=== PATIENT | female | born 1995 | race Caucasian/White ===

== ENCOUNTER 2023-08-31 16:53 | Observation (INO) | payer BC, SELFPAY ==
[2023-08-31 17:25] LABS: Appearance Urine Cloudy (Clear); Bacteria Urine None Seen /hpf; Bilirubin Urine Negative (Negative); Blood Urine Negative (Negative); Color Urine Yellow (Yellow); Glucose Urine UA Negative (Negative); Ketones Urine Negative (Negative); Leukocyte Esterase Ur Trace LEU/UL (Negative); Nitrate Urine Negative (Negative); Non Pathogenic Casts 0-2; Protein Urine Negative (Negative); RBC Urine 0-2 /hpf (0-2); Specific Grav Ur 1.006 (1.001-1.035); Squamous Epithelial Cell Urine Occasional /hpf (Few); Urobilinogen Urine 0.2 mg/dL (<2.0); WBC Urine 0-5 /hpf; pH Urine 6.5 (5.0-9.0)
[2023-08-31 17:29] VITALS: BP 122/88; PULSE 98
[2023-08-31 17:30] VITALS: BP 119/76; PULSE 88
--- NOTE | 2023-08-31 17:31 | PC.NURSE ---
1700: RN phoned Dr. Sharon Young for orders and explained patient has been feeling pressure in her hips, vagina, and rectum since 2 am today. Orders to send a UA and perform a SVE on patient and ensure patient is not olivia. OB stated if UA comes back WNL, patient is not olivia, FHTs are category 1, and patient's cervix is closed that patient may be discharged home with instructions on when to return to the hospital. 1724: RN performed SVE. Patient's cervix was closed, thick, and high.
[2023-08-31 17:33] LABS: Add Urine Microscopic? YES
--- NOTE | 2023-08-31 17:36 | OBADM ---
This patient, Micaela Olmos, admitted to the OB room OB Post 116 for observation. Patient/family oriented to hospital policies and general routines including ID bracelet, bed and alarms, visiting hours, pain management, procedures, bathroom and other care routines, personal items, smoking policy, room service/diet, and visiting hours. Patient/Family are encouraged to report perceived risks to care and to ask questions if they do not understand what they are told or what they should do.
[2023-08-31 17:45] VITALS: BP 121/80; PULSE 93
[2023-08-31 17:56] VITALS: BP 122/88; PULSE 101
--- NOTE | 2023-09-02 07:08 | P.PNOB_ITS ---
OB - Triage/Final Diagnosis Visit Information Date of evaluation: 08/31/23 Reason for evaluation: threatened labor Comments/Additional reasons for admission: I have assessed the risk for this patient, Micaela Olmos, and determined that she would benefit from observation care. Evaluation Laboratory results: Laboratory Tests 08/31/23 17:11 Urine Color Yellow Urine Appearance Cloudy H Urine pH 6.5 Ur Specific [place] 1.006 Urine Protein Negative Urine Glucose (UA) Negative Urine Ketones Negative Ur Blood (Man) Negative Urine Nitrate Negative Urine Bilirubin Negative Urine Urobilinogen 0.2 Leukocyte Esterase Rfl Trace H Urine RBC 0-2 Urine WBC 0-5 Ur Squamous Epith Cells Occasional Urine Bacteria None seen Urine Casts 0-2
== END 2023-08-31 18:02 | disposition home or self-care (01) ==
PROVIDERS: Admitting Provider Obstetrics & Gynecology; Visit Provider Obstetrics & Gynecology
DX: O47.02 False labor before 37 completed weeks of gestation, second trimester (principal); Z3A.25 25 weeks gestation of pregnancy
CPT/HCPCS: 59025; 81001; G0378; G0379

== ENCOUNTER 2023-09-14 06:06 | Observation (INO) | payer BC, SELFPAY ==
--- NOTE | ~2023-09-14 | US_ITS ---
EXAMINATION: US OB limited w BPP DATE: 09/14/2023 09:19 INDICATION: Vaginal bleeding during early third trimester TECHNIQUE: Real-time pelvic ultrasound was performed. The interpreting radiologist was not present fo r the study. COMPARISON: None. FINDINGS: There is a single living fetus in vertex presentation. The placenta is anterior. heart rate is 138 beats per minute (bpm). Normal amniotic fluid index of 12.6 cm (5th%-95%: 9.5-24.5 cm at 27 week s estimated gestational age). Normal cervical length of approximately 3.5-4 cm. Biophysical profile performed by the technologist: breathing (30 sec sustained breathing in 30 minutes): 2 out of 2 movement (3 gross body movements in 30 minutes): 2 out of 2 tone (one episode of xumkmov-shvmbgjey-tyfgwly limb movement): 2 out of 2 Amniotic fluid pocket (2 cm): 2 out of 2 Total score: 8 out of 8 IMPRESSION: 1. Single living fetus in vertex presentation with heart rate of 138 bpm. 2. Biophysical profile 8 out of 8. 3. Normal amniotic fluid index of 12.6 cm. Reviewed, dictated and finalized at location A. ARCH ASSISTANT PROFESSOR
[2023-09-14 06:33] VITALS: BP 120/85; PULSE 89
[2023-09-14 06:47] VITALS: BMI 38.7
[2023-09-14 07:00] VITALS: BP 112/72; PULSE 86
[2023-09-14 07:19] LABS: Add Urine Microscopic? YES; Appearance Urine Clear (Clear); Bacteria Urine Rare /hpf; Bilirubin Urine Negative (Negative); Blood Urine 1+ (Negative); Color Urine Yellow (Yellow); Glucose Urine UA Negative (Negative); Ketones Urine Negative (Negative); Leukocyte Esterase Ur 2+ LEU/UL (Negative); Need Manual Microscopic Reviewed; Nitrate Urine Negative (Negative); Non Pathogenic Casts 0-2; Protein Urine Negative (Negative); RBC Urine 0-2 /hpf (0-2); Specific Grav Ur 1.018 (1.001-1.035); Squamous Epithelial Cell Urine Few /hpf (Few); WBC Urine 0-5 /hpf
[2023-09-14 08:00] VITALS: BP 112/72; PULSE 79
--- NOTE | 2023-09-14 08:19 | P.PNOB_ITS ---
OB - Triage/Final Diagnosis Visit Information Date of evaluation: 09/14/23 Reason for evaluation: threatened labor Comments/Additional reasons for admission: I have assessed the risk for this patient, Micaela Olmos, and determined that she would benefit from observation care. Evaluation Laboratory results: Laboratory Tests 09/14/23 06:43 Urine Color Yellow Urine Appearance Clear Urine pH 7.0 Ur Specific [place] 1.018 Urine Protein Negative Urine Glucose (UA) Negative Urine Ketones Negative Ur Blood (Man) 1+ H Urine Nitrate Negative Urine Bilirubin Negative Urine Urobilinogen 1.0 Add Ur Microanalysis Reviewed Leukocyte Esterase Rfl 2+ H Urine RBC 0-2 Urine WBC 0-5 Ur Squamous Epith Cells Few Urine Bacteria Rare Urine Casts 0-2 Vital signs: Vital Signs - 24 hr 09/14/23 06:33 09/14/23 07:00 09/14/23 08:00 Pulse Rate 89 86 79 Blood Pressure 120/85 112/72 112/72
--- NOTE | 2023-09-14 09:52 | PC.NURSE ---
Discussed ultrasound report with pt. Pt has an appt with Dr. Hernadez on Saturday. May return to work tomorrow if there is no more bleeding. Pt stated she had just a scant amt of pink discharge when she used the bathroom recently.
== END 2023-09-14 09:55 | disposition home or self-care (01) ==
PROVIDERS: Admitting Provider Obstetrics & Gynecology; Visit Provider Obstetrics & Gynecology
DX: O47.02 False labor before 37 completed weeks of gestation, second trimester (principal); Z3A.27 27 weeks gestation of pregnancy
CPT/HCPCS: 76815; 76819; 81001; G0378; G0379

== ENCOUNTER 2023-10-02 13:03 | Outpatient (RCR) | payer BC, SELFPAY ==
[2023-10-02 14:09] VITALS: BP 118/86; PULSE 96
== END 2023-12-31 23:59 | disposition home or self-care (01) ==
LOC: ANHOBOP 13:03
PROVIDERS: Visit Provider Obstetrics & Gynecology
DX: O36.8130 Decreased fetal movements, third trimester, not applicable or unspecified (principal); Z3A.29 29 weeks gestation of pregnancy
CPT/HCPCS: 59025

== ENCOUNTER 2023-10-26 20:36 | Observation (INO) | payer BC, SELFPAY ==
--- NOTE | ~2023-10-26 | US_ITS ---
EXAMINATION: US OB limited w BPP DATE: 10/26/2023 22:23 INDICATION: Placental assessment and cervical length check during third trimester TECHNIQUE: Real-time pelvic ultrasound was performed. The interpreting radiologist was not present fo r the study. COMPARISON: 09/14/2023 FINDINGS: There is a single living fetus in vertex presentation. The placenta is anterior. The measured cervica l length is 5.9 cm. heart rate is 148 beats per minute (bpm). The amniotic fluid index is 14.7 cm which is normal (normal range: 8.3 cm to 24.5 cm). Biophysical profile performed by the technologist: breathing (30 sec sustained breathing in 30 minutes): 2 out of 2 movement (3 gross body movements in 30 minutes): 2 out of 2 tone (one episode of knesveg-inzdfuhlx-pdwmbvk limb movement): 2 out of 2 Amniotic fluid pocket (2 cm): 2 out of 2 Total score: 8 out of 8 IMPRESSION: 1. Single living fetus in vertex presentation. 2. Biophysical profile 8 out of 8. 3. Normal amniotic fluid index. Reviewed, dictated and finalized at location F. NIGHT CAREGIVER
--- NOTE | 2023-10-26 20:41 | PC.NURSE ---
Notified Dr. Hernadez of patient arrival to OB unit with complaint of vaginal bleeding/spotting and abdominal pain. Patient states that she had light pink vaginal bleeding following a BM today. 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 Patient states that she did not have any more spotting after her BM this evening. Patient abdomen palpates soft.
--- NOTE | 2023-10-26 20:53 | PC.NURSE ---
Radiology notified of STAT ultrasound order for vaginal bleeding during . appliance repair technician will be called in.
[2023-10-26 20:57] VITALS: RESP 16; TEMP 36.8
[2023-10-26 21:42] LABS: Appearance Urine Clear (Clear); Bacteria Urine None Seen /hpf; Bilirubin Urine Negative (Negative); Blood Urine Negative (Negative); Calcium Oxalate Crystals Urine Present /hpf; Color Urine Yellow (Yellow); Glucose Urine UA Negative (Negative); Ketones Urine Trace mg/dL (Negative); Leukocyte Esterase Ur 1+ LEU/UL (Negative); Need Manual Microscopic Reviewed; Nitrate Urine Negative (Negative); Non Pathogenic Casts 0-2; Protein Urine Negative (Negative); RBC Urine 0-2 /hpf (0-2); Specific Grav Ur 1.023 (1.001-1.035); Squamous Epithelial Cell Urine Occasional /hpf (Few); Urobilinogen Urine 0.2 mg/dL (<2.0); WBC Urine 0-5 /hpf
--- NOTE | 2023-10-26 21:42 | PM.OBTRLD ---
OB - Triage/Final Diagnosis Visit Information Date of evaluation: 10/26/23 Reason for evaluation: other (spotting) Comments/Additional reasons for admission: I have assessed the risk for this patient, Micaelawaylon Olmos, and determined that she would benefit from observation care.
[2023-10-26 21:43] LABS: Add Urine Microscopic? YES
[2023-10-26 21:51] VITALS: BP 124/76; PULSE 94
--- NOTE | 2023-10-26 21:59 | PC.NURSE ---
Patient taken to ultrasound via wheelchair
--- NOTE | 2023-10-26 21:59 | PC.NURSE ---
Dr. Hernadez in unit and reviewed lab results.
--- NOTE | 2023-10-26 22:23 | PC.NURSE ---
Patient returned from ultrasound via wheelchair.
--- NOTE | 2023-10-26 22:44 | PC.NURSE ---
Notified Dr. Hernaedz of ultrasound report from home appliance technician, radiologist report is still pending. Order to discharge patient to home, patient to follow-up in the office on Saturday.
--- NOTE | 2023-10-26 22:55 | PC.NURSE ---
Discharge instructions reviewed with patient. Patient instructed to maintain pelvic rest until follow-up on Saturday10/29/2023 and instructed not to work until follow-up 10/29/2023. labor precautions and kick counts reviewed with patient and patient provided an educational handout. Patient states understanding of all discharge education and instructions.
== END 2023-10-26 22:55 | disposition home or self-care (01) ==
PROVIDERS: Admitting Provider Obstetrics & Gynecology; Visit Provider Obstetrics & Gynecology
DX: O26.853 Spotting complicating pregnancy, third trimester (principal); O26.893 Other specified pregnancy related conditions, third trimester; R10.9 Unspecified abdominal pain; Z3A.33 33 weeks gestation of pregnancy
CPT/HCPCS: 59025; 76815; 76819; 81001; G0378; G0379

== ENCOUNTER 2023-11-10 02:42 | Observation (INO) | payer BC, SELFPAY ==
[2023-11-10] VITALS (7 sets, daily range): BP systolic 106–130; BP diastolic 68–85; PULSE 87–110; BMI 38.7
[2023-11-10 03:27] LABS: Appearance Urine Clear (Clear); Bacteria Urine None Seen /hpf; Bilirubin Urine Negative (Negative); Blood Urine 1+ (Negative); Color Urine Yellow (Yellow); Glucose Urine UA Trace mg/dL (Negative); Ketones Urine Negative (Negative); Leukocyte Esterase Ur 2+ LEU/UL (Negative); Nitrate Urine Negative (Negative); Non Pathogenic Casts 0-2; Protein Urine Negative (Negative); RBC Urine 0-2 /hpf (0-2); Specific Grav Ur 1.009 (1.001-1.035); Squamous Epithelial Cell Urine Occasional /hpf (Few)
[2023-11-10 03:39] LABS: Add Urine Microscopic? YES
--- NOTE | 2023-11-10 04:15 | OBADM ---
This patient, Micaela Olmos, admitted to the OB room OB Post 117 for observation. Patient/family oriented to hospital policies and general routines including ID bracelet, bed and alarms, visiting hours, pain management, procedures, bathroom and other care routines, personal items, smoking policy, room service/diet, and visiting hours. Patient/Family are encouraged to report perceived risks to care and to ask questions if they do not understand what they are told or what they should do.
--- NOTE | 2023-11-15 05:38 | P.PNOB_ITS ---
OB - Triage/Final Diagnosis Visit Information Comments/Additional reasons for admission: I have assessed the risk for this patient, Micaela Olmos, and determined that she would benefit from observation care. Evaluation Laboratory results: Laboratory Tests 11/10/23 03:09 Urine Color Yellow Urine Appearance Clear Urine pH 7.0 Ur Specific [place] 1.009 Urine Protein Negative Urine Glucose (UA) Trace H Urine Ketones Negative Ur Blood (Man) 1+ H Urine Nitrate Negative Urine Bilirubin Negative Urine Urobilinogen 1.0 Leukocyte Esterase Rfl 2+ H Urine RBC 0-2 Urine WBC 11-20 H Ur Squamous Epith Cells Occasional Urine Bacteria None seen Urine Casts 0-2 Final Diagnosis (1) Vaginal spotting: Code(s): N93.9 - Abnormal uterine and vaginal bleeding, unspecified Status: Acute
== END 2023-11-10 04:35 | disposition home or self-care (01) ==
PROVIDERS: Admitting Provider Obstetrics & Gynecology; Visit Provider Obstetrics & Gynecology
DX: O46.93 Antepartum hemorrhage, unspecified, third trimester (principal); Z3A.35 35 weeks gestation of pregnancy
CPT/HCPCS: 81001; 87086; G0378; G0379

== ENCOUNTER 2023-11-21 02:03 | Observation (INO) | payer BC, SELFPAY ==
[2023-11-21 02:38] VITALS: BMI 25.7
--- NOTE | 2023-11-21 03:01 | OBADM ---
This patient, Micaela Bryant, admitted to the OB room Labor/Delivery/Recovery 105 for observation. Patient/family oriented to hospital policies and general routines including ID bracelet, bed and alarms, visiting hours, pain management, procedures, bathroom and other care routines, personal items, smoking policy, room service/diet, and visiting hours. Patient/Family are encouraged to report perceived risks to care and to ask questions if they do not understand what they are told or what they should do.
[2023-11-21 03:32] LABS: Appearance Urine Clear (Clear); Bacteria Urine None Seen /hpf; Bilirubin Urine Negative (Negative); Blood Urine Negative (Negative); Color Urine Yellow (Yellow); Glucose Urine UA Negative (Negative); Ketones Urine Negative (Negative); Leukocyte Esterase Ur 1+ LEU/UL (Negative); Need Manual Microscopic Reviewed; Nitrate Urine Negative (Negative); Non Pathogenic Casts 0-2; Protein Urine Negative (Negative); RBC Urine 0-2 /hpf (0-2); Specific Grav Ur 1.009 (1.001-1.035); Squamous Epithelial Cell Urine None seen /hpf (Few); Urobilinogen Urine 0.2 mg/dL (<2.0); WBC Urine 0-5 /hpf; pH Urine 7.5 (5.0-9.0)
[2023-11-21 03:33] LABS: Add Urine Microscopic? YES
--- NOTE | 2023-12-04 13:47 | PM.OBTRLD ---
OB - Triage/Final Diagnosis Visit Information Comments/Additional reasons for admission: I have assessed the risk for this patient, Micaela Bryant, and determined that she would benefit from observation care. Evaluation Laboratory results: Laboratory Tests 11/21/23 02:56 Urine Color Yellow Urine Appearance Clear Urine pH 7.5 Ur Specific [place] 1.009 Urine Protein Negative Urine Glucose (UA) Negative Urine Ketones Negative Ur Blood (Man) Negative Urine Nitrate Negative Urine Bilirubin Negative Urine Urobilinogen 0.2 Add Ur Microanalysis Reviewed Leukocyte Esterase Rfl 1+ H Urine RBC 0-2 Urine WBC 0-5 Ur Squamous Epith Cells None seen Urine Bacteria None seen Urine Casts 0-2 Final Diagnosis (1) False labor: Code(s): O47.9 - False labor, unspecified Status: Acute
== END 2023-11-21 03:49 | disposition home or self-care (01) ==
PROVIDERS: Admitting Provider Obstetrics & Gynecology; Visit Provider Obstetrics & Gynecology
DX: O47.03 False labor before 37 completed weeks of gestation, third trimester (principal); Z3A.36 36 weeks gestation of pregnancy
CPT/HCPCS: 81001; G0378; G0379

== ENCOUNTER 2023-12-10 06:05 | Inpatient (IN) | payer BC, SELFPAY ==
[2023-12-10] VITALS (142 sets, daily range): BP systolic 99–189; BP diastolic 60–111; PULSE 72–300; RESP 16; TEMP 36.1–36.6; O2SAT 88–100
--- NOTE | 2023-12-10 05:52 | P.HP_ITS ---
H&P: HPI History of Present Illness Date/Time: 12/10/23 05:52 Chief Complaint: elevated blood pressure internal Narrative: 28-year-old 4 para 0 whose last menstrual period was 03/07/2023, EDC is 12/13/2023, confirmed by 9 week ultrasound, presents at 39 weeks gestation for induction of labor secondary to elevated blood pressures. had been previously uncomplicated short of being gestational diabetic. She has been on glyburide 2.5mg with excellent control for sugars. She is negative for group B strep PMFSH Family History Family History Mother Hypertension Sibling Hypertension Acute depression Placental abruption Grandparent Hypertension Grandparent Hypertension Father Hypotension Sibling Hodgkin lymphoma during Grandparent Diabetes mellitus Grandparent Diabetes mellitus Social History Social History Substance use: never Spiritual care concerns: No Meds Home Medications and Allergies Home Medications Medication Instructions Recorded Confirmed Type glyburide 2.5 mg tablet 2.5 mg PO DAILY 10/02/23 11/19/23 History vits no.126-ferrous fum 1 tablet PO DAILY 11/19/23 11/19/23 History 28 mg iron-folic acid 800 mcg tablet (Classic ) Allergies Allergy/AdvReac Type Severity Reaction Status Date / Time No Known Allergies Allergy Verified 11/19/23 14:37 Exam Const: General: cooperative, healthy appearing and comfortable Nutritional Appearance: average body habitus Orientation/consciousness: oriented to person, oriented to place and oriented to time HENMT: Head: normal to inspection Resp: Effort & Inspection: normal respiratory effort Cardio: Rate: regular rate Rhythm: regular rhythm Heart sounds: S1 normal heart sound present and S2 normal heart sound present GI: Inspection: normal to inspection ( gravid soft uterus) : External Female Exam: normal external appearance Speculum Exam - Vagi na: normal appearance of the vagina Speculum Exam - Cervix: normal appearance of the cervix ( cervix 2/ 75/-2) Assessment and Plan Assessment and plan (1) Term : Code(s): Z34.90 - Encounter for supervision of normal , unspecified, unspecified trimester Status: Acute (2) Gestational hypertension: Code(s): O13.9 - Gestational [-induced] hypertension without significant proteinuria, unspecified trimester Status: Acute Plan medical induction of labor. Spontaneous vaginal inspected the a stat nature of
--- NOTE | 2023-12-10 06:44 | LDADM ---
This patient, Micaela Bryant, was admitted to Labor/Delivery/Recovery 106 on 12/10/23 at 06:05. Plans for labor, pain management and were discussed with patient. Patient/family oriented to hospital policies and general routines including ID bracelet, bed and alarms, visiting hours, pain management, procedures, bathroom and other care routines, personal items, smoking policy, room service/diet and guest tray routines, infant security routines, and visiting hours. Patient/Family are encouraged to report perceived risks to care and to ask questions if they do not understand what they are told or what they should do. See OBIX for further documentation.
[2023-12-10] MEDS: LACTATED RINGERS 1,000 ML 125 ML IV CONT ×3 (07:01→16:12)
[2023-12-10] MEDS: OXYTOCIN 30 UNITS/NS 500 ML 30 UNITS/500 ML BAG 6 UNITS IV CONT (07:03)
[2023-12-10 07:16] LABS: Basophils Percent Auto 0.2 % (0.2-1.2); Eosinophils Absolute Auto 0.3 K/mm3 (0-0.3); Eosinophils Percent Auto 2.4 % (0-4.4); Hematocrit 32.6 % (37.0-47.0); Hemoglobin 10.1 g/dL (12.0-15.0); Immature Granulocyte Absolute 0.03 K/mm3 (0.00-0.031); Immature Granulocyte Percent A 0.3 % (0-0.5); Lymphocytes Absolute Auto 2.86 K/mm3 (0.9-3.2); Lymphocytes Percent Auto 25.6 % (18.3-44.2); Mean Platelet Volume 12.4 fl (7.4-10.4); Monocytes Absolute Auto 0.9 K/mm3 (0.1-0.6); Neutrophils Absolute Auto 7.1 K/mm3 (1.3-6.7); Neutrophils Percent Auto 63.5 % (45.5-73.1); Platelet Count Result 217 k/mm3 (150-375); Red Blood Count 3.88 M/mm3 (4.2-5.4); Red Cell Distribution Width 14.8 % (11.5-14.5); White Blood Count 11.2 K/mm3 (4.5-10.0)
[2023-12-10 07:25] LABS: Alanine Aminotransferase 12 U/L (6-35); Albumin Level 3.3 g/dL (3.5-5.1); Alkaline Phosphatase 162 U/L (38-126); Anion Gap 7 mmol/L (8-16); Aspartate Amino Transferase 18 U/L (14-36); Bilirubin,Total 0.3 mg/dL (0.2-1.3); Blood Urea Nitrogen 12 mg/dL (7-17); Calcium 9.2 mg/dL (8.4-10.2); Carbon Dioxide 21 mmol/L (22-30); Chloride 108 mmol/L (98-107); Estimated Glomerular Filt Rate > 60; Glucose 86 mg/dL (65-110); Potassium 3.6 mmol/L (3.4-5.0); Sodium 136 mmol/L (137-145)
[2023-12-10 10:13] LABS: Glucose Point of Care 69 mg/dl (65-105)
--- NOTE | 2023-12-10 11:21 | WPDANESEPP ---
Anes - Eval Pre Procedure Procedure: Labor Epidural Date/Time: 12/10/23 11:21 Surgeon: Maricarmen Preop Diagnosis: Labor Pain Pre Op Diagnosis: iol Patient Data Age: 28 Gender: F Height: Weight: Last Vital Signs Temp 36.2 C L 12/10/23 07:00 Pulse 97 12/10/23 11:19 BP 137/80 12/10/23 11:19 Pulse Ox 97 12/10/23 11:19 O2 Del Method Room Air 12/10/23 06:40 Allergies Allergy/AdvReac Type Severity Reaction Status Date / Time No Known Allergies Allergy Verified 11/19/23 14:37 Home Medications Medication Instructions Recorded Confirmed Type glyburide 2.5 mg tablet 2.5 mg PO DAILY 10/02/23 11/19/23 History vits no.126-ferrous fum 1 tablet PO DAILY 11/19/23 11/19/23 History 28 mg iron-folic acid 800 mcg tablet (Classic ) Laboratory Tests 12/10/23 12/10/23 06:13 10:08 WBC 11.2 H K/mm3 (4.5-10.0) RBC 3.88 L M/mm3 (4.2-5.4) Hgb 10.1 L g/dL (12.0-15.0) Hct 32.6 L % (37.0-47.0) MCV 84.0 fl (80-100) MCH 26.0 pg (26-34) MCHC 31.0 L g/dl (32-36) RDW 14.8 H % (11.5-14.5) Plt Count 217 k/mm3 (150-375) MPV 12.4 H fl (7.4-10.4) Immature Gran % (Auto) 0.3 % (0-0.5) Neut % (Auto) 63.5 % (45.5-73.1) Lymph % (Auto) 25.6 % (18.3-44.2) [place] % (Auto) 8.0 % (2.6-8.5) Eos % (Auto) 2.4 % (0-4.4) Baso % (Auto) 0.2 % (0.2-1.2) Lymph # (Auto) 2.86 K/mm3 (0.9-3.2) [place] # (Auto) 0.9 H K/mm3 (0.1-0.6) Eos # (Auto) 0.3 K/mm3 (0-0.3) Baso # (Auto) 0.0 K/mm3 (0.0-0.1) Abs Immat Gran (auto) 0.03 K/mm3 (0.00-0.031) Absolute Neuts (auto) 7.1 H K/mm3 (1.3-6.7) Absolute Nucleated RBC 0.0 K/mm3 (0.0-0.012) Nucleated RBC % 0.0 % (0.0-0.2) Sodium 136 L mmol/L (137-145) Potassium 3.6 mmol/L (3.4-5.0) Chloride 108 H mmol/L (98-107) Carbon Dioxide 21 L mmol/L (22-30) Anion Gap 7 L mmol/L (8-16) BUN 12 mg/dL (7-17) Creatinine 0.60 L mg/dL (0.7-1.0) Estim Creat Clear Calc Not Reportable Estimated GFR > 60 (59 - ) Glucose 86 mg/dL (65-110) POC Capillary Glucose 69 mg/dl (65-105) Calcium 9.2 mg/dL (8.4-10.2) Total Bilirubin 0.3 mg/dL (0.2-1.3) AST 18 U/L (14-36) ALT 12 U/L (6-35) Alkaline Phosphatase 162 H U/L (38-126) Total Protein 7.0 g/dL (6.3-8.2) Albumin 3.3 L g/dL (3.5-5.1) RPR Pending Blood Type A Positive Antibody Screen Negative Patient hx anesthesia problems: none Family hx anesthesia problems: none Results Review: All pre-operative results and documents have been reviewed as part of the pre-operative evaluation. [facility] Family History Family History Mother Hypertension Sibling Hypertension Acute depression Placental abruption Grandparent Hypertension Grandparent Hypertension Father Hypotension Sibling Hodgkin lymphoma during Grandparent Diabetes mellitus Grandparent Diabetes mellitus Social History Social History Smoking status: Former smoker Tobacco type: e-cigarettes/vaping Second hand tobacco smoke exposure: No Substance use: never Do You Feel Safe in your Home?: Yes Lack of Transportation: No Lack of Food: Never True Current Housing: I Have Housing Concerned About Future Housing: No Difficulty Paying Gas/Electric Bills: No Difficulty Paying for Meds: No Currently Unemployed: No Education: High School Diploma/GED Difficulty w/ Childcare or Family Care: No Spiritual care concerns: No Exam Day of Procedure 12/10/23 11:21
--- NOTE | 2023-12-10 11:51 | PM.OBPNLAB ---
Pain Control Date/time seen: 12/10/23 11:51 Pain control: tolerating well and epidural Pelvic Exam Dilation (cm): 3 Effacement (%): 75 station: -1 Amniotic membrane status: Leaking Contractions Monitor mode: Internal
[2023-12-10 14:08] LABS: Glucose Point of Care 75 mg/dl (65-105)
[2023-12-10 14:40] LABS: Rapid Plasma Reagin Non-Reactive (NonReactive)
--- NOTE | 2023-12-10 16:22 | PM.OBPNLAB ---
Pain Control Date/time seen: 12/10/23 16:22 Pain control: tolerating well and epidural Pelvic Exam Dilation (cm): 4 Effacement (%): 75 station: -1 Amniotic membrane status: Leaking Contractions Monitor mode: Internal
--- NOTE | 2023-12-10 17:04 | PM.OBPNLAB ---
Pain Control Date/time seen: 12/10/23 17:04 Pain control: tolerating well and epidural Pelvic Exam Dilation (cm): 9 Effacement (%): 100 station: -1 Amniotic membrane status: Leaking Contractions Monitor mode: Internal
--- NOTE | 2023-12-10 18:15 | PM.OBPRVD ---
OB - Vaginal Delivery Note Procedure Delivery date: 12/10/23 Events: Gestational Hypertension Induction method: AROM Delivery augmentation: Pitocin Delivery monitor: External FHT and Internal Uterine Route of delivery: Laceration Description: None Specimen: No Quantitative Blood Loss (ml): 161 Anesthesia type: Epidural Disposition: PACU Complications: No immediate complications Baby Date of : 12/10/23 Time of : 18:00 Weeks of gestation at delivery: 39 Infant gender: Female Weight (pounds): 9 Weight (ounces): 14 presentation: vertex position: Right Occiput Anterior Placenta delivery description: Spontaneous Cord Vessel Description: 3 Vessels score one minute: 8 score five minutes: 9
--- NOTE | 2023-12-10 18:16 | P.DS_ITS ---
DS: Admitting Diagnosis Discharge Date 12/12/2023 Admitting Diagnosis gestational hypertension/term DS: Discharge Diagnosis Discharge Diagnosis (1) Gestational hypertension: Code(s): O13.9 - Gestational [-induced] hypertension without significant proteinuria, unspecified trimester Status: Acute (2) Term : Code(s): Z34.90 - Encounter for supervision of normal , unspecified, unspecified trimester Status: Acute DS: Summary Hospital Course Reason for hospitalization: gestational hypertension for induction of Hospital Course: labor patient underwent spontaneous vaginal delivery large 227 24. Her hospital course was remarkable. She remained afebrile. She was up, with difficulty, eating regular diet, ambulating, general without complaints. Time Spent with Patient Time attestation: Total time spent providing and/or coordinating discharge services: DS: Data Data Completed and Pending Labs on day of discharge: Labs from last 24 hours 12/10/23 12/10/23 12/10/23 14:03 10:08 06:13 WBC 11.2 H RBC 3.88 L Hgb 10.1 L Hct 32.6 L MCV 84.0 MCH 26.0 MCHC 31.0 L RDW 14.8 H Plt Count 217 MPV 12.4 H Immature Gran % (Auto) 0.3 Neut % (Auto) 63.5 Lymph % (Auto) 25.6 [place] % (Auto) 8.0 Eos % (Auto) 2.4 Baso % (Auto) 0.2 Lymph # (Auto) 2.86 [place] # (Auto) 0.9 H Eos # (Auto) 0.3 Baso # (Auto) 0.0 Abs Immat Gran (auto) 0.03 Absolute Neuts (auto) 7.1 H Absolute Nucleated RBC 0.0 Nucleated RBC % 0.0 Sodium 136 L Potassium 3.6 Chloride 108 H Carbon Dioxide 21 L Anion Gap 7 L BUN 12 Creatinine 0.60 L Estim Creat Clear Calc Not Reportable Estimated GFR > 60 Glucose 86 POC Capillary Glucose 75 69 Calcium 9.2 Total Bilirubin 0.3 AST 18 ALT 12 Alkaline Phosphatase 162 H Total Protein 7.0 Albumin 3.3 L RPR Non-reactive Blood Type A Positive Antibody Screen Negative Discharge Plan Discharge Attending physician on discharge: Bernabe Montana Discharging Clinician: Bernabe Montana Patient Disposition: Home, Self-Care Activity: may shower, no straining and pelvic rest Diet: as tolerated and heart healthy Wound Care Instructions: follow printed instructions Patient Instructions: Antibiotic Form Stand Alone Forms: General Discharge Information Follow-up/Referrals: Bernabe Montana MD [Physician] - Discharge Medications: No Action glyburide 2.5 mg Tablet 2.5 mg PO DAILY Classic 28 mg iron- 800 mcg Tablet 1 tablet PO DAILY Date of admission: 12/10/23 06:05 Primary Care Provider: PHYSICIAN,CHILD AND FAMILY COUNSELOR Admitting Provider: Bernabe Montana Attending physician on admission: Bernabe Montana Condition: Stable
[2023-12-10] MEDS: OXYTOCIN 30 UNITS/NS 500 ML 30 UNITS/500 ML BAG 125 UNITS IV CONT (18:38)
[2023-12-10] MEDS: IBUPROFEN 600 MG TABLET PO (20:30)
[2023-12-11] MEDS: ACETAMINOPHEN 325 MG TABLET 650 MG PO ×2 (01:50→15:19)
[2023-12-11 04:25] LABS: Hematocrit 30.3 % (37.0-47.0); Hemoglobin 9.7 g/dL (12.0-15.0)
--- NOTE | 2023-12-11 06:05 | PM.OBPNVD ---
OB - PN: Subj Subjective Date/time seen: 12/11/23 06:05 Patient comments: no complaints and pain well controlled baby status: doing well OB - PN: Obj Data Labs 12/11/23 03:01 12/10/23 06:13 Labs: Laboratory Results - last 24 hr 12/10/23 12/10/23 12/10/23 06:13 10:08 14:03 WBC 11.2 H RBC 3.88 L Hgb 10.1 L Hct 32.6 L MCV 84.0 MCH 26.0 MCHC 31.0 L RDW 14.8 H Plt Count 217 MPV 12.4 H Immature Gran % (Auto) 0.3 Neut % (Auto) 63.5 Lymph % (Auto) 25.6 [place] % (Auto) 8.0 Eos % (Auto) 2.4 Baso % (Auto) 0.2 Lymph # (Auto) 2.86 [place] # (Auto) 0.9 H Eos # (Auto) 0.3 Baso # (Auto) 0.0 Abs Immat Gran (auto) 0.03 Absolute Neuts (auto) 7.1 H Absolute Nucleated RBC 0.0 Nucleated RBC % 0.0 Sodium 136 L Potassium 3.6 Chloride 108 H Carbon Dioxide 21 L Anion Gap 7 L BUN 12 Creatinine 0.60 L Estim Creat Clear Calc Not Reportable Estimated GFR > 60 Glucose 86 POC Capillary Glucose 69 75 Calcium 9.2 Total Bilirubin 0.3 AST 18 ALT 12 Alkaline Phosphatase 162 H Total Protein 7.0 Albumin 3.3 L RPR Non-reactive Blood Type A Positive Antibody Screen Negative 12/11/23 03:01 WBC RBC Hgb 9.7 L Hct 30.3 L MCV MCH MCHC RDW Plt Count MPV Immature Gran % (Auto) Neut % (Auto) Lymph % (Auto) [place] % (Auto) Eos % (Auto) Baso % (Auto) Lymph # (Auto) [place] # (Auto) Eos # (Auto) Baso # (Auto) Abs Immat Gran (auto) Absolute Neuts (auto) Absolute Nucleated RBC Nucleated RBC % Sodium Potassium Chloride Carbon Dioxide Anion Gap BUN Creatinine Estim Creat Clear Calc Estimated GFR Glucose POC Capillary Glucose Calcium Total Bilirubin AST ALT Alkaline Phosphatase Total Protein Albumin RPR Blood Type Antibody Screen OB - PN A/P Plan day: 1 Plan: routine care Time Spent With Patient Time: Total time spent is greater than 50% in coordination of care (as documented) at patient's floor/unit and/or counseling patient: Time with patient: less than 15 minutes Exam Const: General: cooperative, healthy appearing and comfortable Nutritional Appearance: average body habitus Orientation/consciousness: oriented to person, oriented to place and oriented to time HENMT: Head: normal to inspection Resp: Effort & Inspection: normal respiratory effort Cardio: Rate: regular rate Rhythm: regular rhythm Heart sounds: S1 normal heart sound present and S2 normal heart sound present GI: Inspection: normal to inspection
[2023-12-11] MEDS: IBUPROFEN 600 MG TABLET PO ×2 (09:00→17:08)
[2023-12-11] MEDS: MULTIVIT/MIN/PREN/FOL AC/IRON TABLET 1 TAB PO (09:01)
[2023-12-11] MEDS: DOCUSATE SODIUM 100 MG CAPSULE PO ×2 (09:01→17:08)
[2023-12-11] MEDS: POLYSACCHARIDE IRON COMPLEX 150 MG CAPSULE PO ×2 (09:01→17:08)
[2023-12-11 09:10] VITALS: BP 127/76; PULSE 88; RESP 16; TEMP 36.5; O2SAT 97
[2023-12-11 11:57] VITALS: BP 114/68; PULSE 91; RESP 16; TEMP 36.7; O2SAT 97
--- NOTE | 2023-12-11 13:34 | PC.NURSE ---
1000 - 1005 Reported to RN ALTAF that mother is independently. Purposefully rounded to assess for needs. Mother is holding her infant. Introductions were made, then Mother verbalizes she is able to independently latch infant, denies any nipple discomfort and is responsively . Encouraged understanding of the benefits of skin to skin (demonstrating unwrapping infant and placing upright on her chest), stimulating with massage touch, changing positions to encourage wakefulness, how to watch for early feeding cues, responsive feeding, feeding on demand (aiming for 8-12 times in 24 hours, about every 2-3 hours), milk production, building/maintaining a milk supply, duration of feeding, signs of adequate intake/output and how to record on the feeding sheet. Reviewed comfort measures of healing with a warm, wet washcloth to rinse breast, then leave open to air-dry, good handwashing when or touching the breast/nipples to prevent infection. Infant is currently meeting outcomes for weight, output, jaundice, blood sugar and feeding frequencies of 8-12 times in 24 hours at 16 hours of life. Mother declines any additional assistance or education at this time. Mother is encouraged to call for assistance if her infant doesn?t latch, difficulty waking infant, pain with latching, latch assessment, questions or concerns. Mother voiced understanding of information shared along with the mom/baby guide for an additional resource and also name written on the communication board. Reported to the Primary RN.
[2023-12-11 21:00] VITALS: BP 116/74; PULSE 91; RESP 16; TEMP 36.4
[2023-12-12] MEDS: ACETAMINOPHEN 325 MG TABLET 650 MG PO (00:22)
[2023-12-12] MEDS: CALCIUM CARBONATE (TUMS) 500 MG (200 MG ELEMENTAL) (00:26)
--- NOTE | 2023-12-12 05:46 | PM.OBPNVD ---
OB - PN: Subj Subjective Date/time seen: 12/12/23 05:46 Patient comments: no complaints and pain well controlled baby status: doing well and nursing well OB - PN: Obj Data Labs 12/11/23 03:01 12/10/23 06:13 OB - PN A/P Plan day: 2 Plan: routine care, discharge home and follow up 6 weeks Time Spent With Patient Time: Total time spent is greater than 50% in coordination of care (as documented) at patient's floor/unit and/or counseling patient: Time with patient: less than 15 minutes Exam Const: General: cooperative, healthy appearing and comfortable Orientation/consciousness: oriented to person, oriented to place and oriented to time Resp: Effort & Inspection: normal respiratory effort Cardio: Rate: regular rate Rhythm: regular rhythm Heart sounds: S1 normal heart sound present and S2 normal heart sound present GI: Inspection: normal to inspection
[2023-12-12 07:30] VITALS: BP 118/81; PULSE 89; RESP 16; TEMP 36.8; O2SAT 96
[2023-12-12] MEDS: IBUPROFEN 600 MG TABLET PO ×2 (08:03→14:03)
[2023-12-12] MEDS: MULTIVIT/MIN/PREN/FOL AC/IRON TABLET 1 TAB PO (08:03)
[2023-12-12] MEDS: POLYSACCHARIDE IRON COMPLEX 150 MG CAPSULE PO (08:03)
[2023-12-12] MEDS: DOCUSATE SODIUM 100 MG CAPSULE PO (08:03)
--- NOTE | 2023-12-12 09:08 | PC.NURSE ---
Patient viewed the discharge video Mother & Baby Care, The First Two Weeks . Patient was given the opportunity and encouraged to ask questions. Patient verbalized understanding of information shared and has been given the mother/baby guide for home reference.
--- NOTE | 2023-12-12 11:33 | PC.NURSE ---
[id number] Purposefully rounded to assess for needs. is crying. Demonstrated soothing infant. Mother is concerned with the lack of milk when she hand expresses. Reviewed hand expression, education supplemented with breast model, and practiced the technique. Milk expresses easily with improvement. Discussed mothers concerns with supplementing with formula and reviewed typical behavior for 2nd 24 hours and what to expect moving forward in the next hours and days. Mother led the conversation with her experience so far, plan to feed her , and her ability to independently latch optimally without discomfort. Reminded mother to use good handwashing technique to prevent infection. Mother is feeding appropriately for growth of infant and understands stimulating to eat if needed. has had appropriate feedings in the last 24 hours meets the outcomes for weight, output, blood sugar and jaundice at this time. Mother states she is confident to continue effectively her at home, when to call for assistance, denies any additional assistance or education at this time. Reinforced understanding of milk production, transition of milk, signs of adequate intake, transition of stool, prevention/relief of engorgement, plugged ducts, mastitis, responsive watching for feeding cues, the different methods of stimulating infant to breastfeed 1-3 hours after the start of the last feeding, community resources, and when to call a provider using the resource of the feeding sheet along with the mom and baby guide. Mother voiced understanding of the education shared. Reported to the Primary RN.
[2023-12-13 13:16] VITALS: BP 128/93; PULSE 76; RESP 18; TEMP 36.8; O2SAT 100
== END 2023-12-12 17:00 | disposition home or self-care (01) | DRG 807 ==
LOC: ANHLDR 18:18 → ANHOB2 21:10
PROVIDERS: Admitting Provider Obstetrics & Gynecology; Visit Provider Obstetrics & Gynecology
DX: O13.4 Gestational [pregnancy-induced] hypertension without significant proteinuria, complicating childbirth (principal); Z37.0 Single live birth; Z3A.39 39 weeks gestation of pregnancy; O77.0 Labor and delivery complicated by meconium in amniotic fluid
CPT/HCPCS: 36415; 80053; 82948; 85014; 85018; 85025; 86592; 86850; 86900; 86901; A9270; J2590; J2795; J7120

== ENCOUNTER 2025-06-17 16:27 | Observation (INO) | payer OTHER, MEDICAID, SELFPAY ==
--- NOTE | ~2025-06-17 | US_ITS ---
US OB limited 06/17/2025 18:12 Indication: Bleeding. Evaluate placenta. Procedure: Real-time transabdominal limited obstetrical ultrasound Comparison: No prior studies for comparison. Findings: There is a single living intrauterine in vertex presentation. heart rate 140 BPM. Placenta is anterior without evidence for abnormality. Amniotic fluid is subjectively normal. Impression: 1: Single living intrauterine in vertex presentation. 2: The placenta is grossly normal, without suggestion of placenta abruption. However, ultrasound is not diagnostic of abruption since acute hemorrhage can be isoechoic to be placenta. Recommend clinical correlation. Reviewed, dictated and finalized at location O. Impression: 1: Single living intrauterine in vertex presentation. 2: The placenta is grossly normal, without suggestion of placenta abruption. H owever, ultrasound is not diagnostic of abruption since acute hemorrhage can be isoechoic to be placenta. Recommend clinical correlation.
--- NOTE | 2025-06-17 16:27 | OBADM ---
This patient, Micaela Bryant, admitted to the OB room OB Post 116 for observation. Patient/family oriented to hospital policies and general routines including ID bracelet, bed and alarms, visiting hours, pain management, procedures, bathroom and other care routines, personal items, smoking policy, room service/diet, and visiting hours. Patient/Family are encouraged to report perceived risks to care and to ask questions if they do not understand what they are told or what they should do.
--- OUTSIDE RECORDS SUMMARY | 2025-06-17 16:36 | XMS_ITS | Clinical Summary ---
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 Gender Identity Not on file Sexual Orientation Not on file Plan of Treatment Health Maintenance Due Date Last Done Comments Hepatitis C Virus (HCV) Screening 1996 Pap Smear 2017 Influenza Immunization (#1) 2025 08/03/2022 SARS-COV-2 Immunization ( season) 2025 Hepatitis B Immunization Completed 997, 1996, 1996 Human Papillomavirus (HPV) Immunization Completed 01/10/2011, 08/22/2010, 05/18/2010 Respiratory Syncytial Virus (RSV) Immunization (Adult) Completed 11/06/2023 TdaP Immunization Completed 11/06/2023, 05/18/2010 Meningococcal Immunization (ACWY) Aged Out No longer eligible b ased on patient's age to complete this topic Pneumococcal Immunization Combined Aged Out No longer eligible b ased on patient's age to complete this topic Rotavirus Immunization Aged Out No lo nger eligible based on patient's age to complete this topic Insurance [facility] Care Teams Car Rider Relationship Specialty Start Date End Date Adali Acevedo MD [address] [place] [address] [place] [id number] PCP - General Family Medicine 10/21/24
--- NOTE | 2025-06-17 16:51 | PM.OBTRLD ---
OB - Triage/Final Diagnosis Visit Information Date of evaluation: 06/17/25 Reason for evaluation: threatened labor Comments/Additional reasons for admission: I have assessed the risk for this patient, Micaela Posadas Manny, and determined that she would benefit from observation care.
[2025-06-17 16:58] VITALS: BP 119/90; PULSE 84
[2025-06-17 17:00] VITALS: BP 129/84; PULSE 86; BMI 38.0
[2025-06-17 17:15] VITALS: BP 106/70; PULSE 81
[2025-06-17 17:30] VITALS: BP 110/71; PULSE 78
[2025-06-17 17:45] VITALS: BP 118/77; PULSE 85
--- NOTE | 2025-06-17 18:30 | PC.NURSE ---
Ultrasound report given to Dr. Sharon Young. Informed that pt complaining of some cramping still. Send and february D/C home.
[2025-06-17 19:01] LABS: Add Urine Microscopic? YES; Appearance Urine Clear (Clear); Glucose Urine UA Negative (Negative); Leukocyte Esterase Ur 2+ LEU/UL (Negative); Nitrate Urine Negative (Negative); Non Pathogenic Casts 0-2; Specific Grav Ur 1.030 (1.001-1.035)
== END 2025-06-17 18:43 | disposition home or self-care (01) ==
PROVIDERS: Admitting Provider Obstetrics & Gynecology; Visit Provider Obstetrics & Gynecology
DX: O47.02 False labor before 37 completed weeks of gestation, second trimester (principal); Z3A.18 18 weeks gestation of pregnancy
CPT/HCPCS: 76815; 81001; 87086; G0378; G0379

== ENCOUNTER 2025-08-09 10:25 | Outpatient (CLI) | payer OTHER, MEDICAID, SELFPAY ==
--- OUTSIDE RECORDS SUMMARY | 2025-08-09 11:57 | XMS_ITS | Data Portability ---
Author Organization [facility] JACINTOFrank Underwood Debi Address [address] [place] [address] Care Team Providers Care Vascular Technologist Name Role Phone RONI ORTEGA Primary Care Provider Unavailab RONI Marina Signal Fitter Unavailable Assessment No assessment recorded. Plan of Treatment Reminders Order Date Submit Date Provider Last Modified By Organization Details Last Modified Time Details Appointments None recorded. Lab HCG, intact + beta subunit, quant, serum or plasma 2023 024 [facility], [address], [address], 4 12:36:37 test, urine 2023 024 [email or web address] In-Office Order, Internal Use Only DO Not Attach Compendium DO Not Attach Compendium, Do Not Delete/merge, [id number] 10:01:46 HbA1c (hemoglobin A1c), blood 2023 024 [facility], [address] [facility] [address], [address], 4 12:36:36 lipid panel, serum 2023 024 [facility], [address] [facility], [facility] [address], [place], [address], 4 12:36:33 CMP, serum or plasma 2023 024 [facility], [address] [facility] [address], [address], 4 12:36:35 CBC 2023 024 [facility], [address] [facility], [facility] [address], [place], [address], 4 12:36:38 Referral None recorded. Procedures None recorded. Surgeries None recorded. Imaging None recorded. Medication Orders sertraline 25 mg tablet 2024 025 [id number], [address], [place], [id number], 5 12:52:09 Patient TargetsNo targets recorded. Patient Instructions Encounter Date Encounter Id Patient Instructions Last Modified By Organization Details Last Modified Time 10/12/2024 [id number] A healthy lifestyle: care instructions [email or web address] Not available 10/12/2024 10:01:46 Reason for Referral None Reported. Results Created Date Observation Date Name Description Value Unit Range Abnormal Flag Note LastModifiedBy Organization Detail LastModifiedTime 10/12/20 24 10/13/2024 LIPID PANEL cholesterol, total 167 mg/dL 100-19 9 Not Available [facility] ([facility]) [address] [facility], [place], [address], 10/13/2024 12:36:33 10/12/20 24 10/13/2024 LIPID PANEL triglyceride s 139 mg/dL 0-149 Not Available [facility] ([facility]) [address] [facility], [place], [address], 10/13/2024 12:36:33 10/12/20 24 10/13/2024 LIPID PANEL HDL cholesterol 44 mg/dL >39 Not Available [facility]) [address] [facility], [place], [address], 10/13/2024 12:36:33 10/12/20 24 10/13/2024 LIPID PANEL VLDL cholesterol fantasma 25 mg/dL 5-40 Not Available [facility] ([facility]) [address] [facility], [place], [address], 10/13/2024 12:36:33 10/12/20 24 10/13/2024 LIPID PANEL LDL chol calc ([facility]) 98 mg/dL 0-99 Not Available [facility] ([facility]) [address] [facility], [place], [address], 10/13/2024 12:36:33 10/12/20 24 10/13/2024 COMP. METAB OLIC PANEL (14) glucose 95 mg/dL 70-99 Not Available [facility] ([facility]) [address] [facility], [place], [address], 10/13/2024 12:36:35 10/12/20 24 10/13/2024 COMP. METAB OLIC PANEL (14) BUN 11 mg/dL 6-20 Not Available [facility] ([facility]) [address] [facility], [place], [address], 10/13/2024 12:36:35 10/12/20 24 10/13/2024 COMP. METAB OLIC PANEL (14) creatinine 0.68 mg/dL 0.57-1 .00 Not Available [facility] ([facility]) [address] [facility], [place], [address], 10/13/2024 12:36:35 10/12/20 24 10/13/2024 COMP. METAB OLIC PANEL (14) eGFR 122 mL/mi n/1.7 3 >59 Not Available [facility] ([facility]) [address] [place], [address], 10/13/2024 12:36:35 10/12/20 24 10/13/2024 COMP. METAB OLIC PANEL (14) BUN/creatini ne ratio 16 9-23 Not Available [facility] ([facility]) [address] [place], [address], 10/13/2024 12:36:35 10/12/20 24 10/13/2024 COMP. METAB OLIC PANEL (14) sodium 141 mmol/ L 134-14 4 Not Available [facility] ([facility]) [address] [place], [address], 10/13/2024 12:36:35 10/12/20 24 10/13/2024 COMP. METAB OLIC PANEL (14) potassium 4.4 mmol/ L 3.5-5. 2 Not Available [facility] ([facility]) [address] [place], [address], 10/13/2024 12:36:35 10/12/20 24 10/13/2024 COMP. METAB OLIC PANEL (14) chloride 103 mmol/ L 96-106 Not Available [facility] ([facility]) [address] [place], [address], 10/13/2024 12:36:35 10/12/20 24 10/13/2024 COMP. METAB OLIC PANEL (14) carbon dioxide, total 21 mmol/ L 20-29 Not Available [facility] ([facility]) [address] [place], [address], 10/13/2024 12:36:35 10/12/20 24 10/13/2024 COMP. METAB OLIC PANEL (14) calcium 9.4 mg/dL 8.7-10 .2 Not Available [facility] ([facility]) [address] [place], [address], 10/13/2024 12:36:35 10/12/20 24 10/13/2024 COMP. METAB OLIC PANEL (14) protein, total 6.9 g/dL 6.0-8. 5 Not Available [facility] ([facility]) [address] [place], [address], 10/13/2024 12:36:35 10/12/20 24 10/13/2024 COMP. METAB OLIC PANEL (14) albumin 4.3 g/dL 4.0-5. 0 Not Available [facility] ([facility]) [address] [place], [address], 10/13/2024 12:36:35 10/12/20 24 10/13/2024 COMP. METAB OLIC PANEL (14) globulin, total 2.6 g/dL 1.5-4. 5 Not Available [facility] ([facility]) [address] [facility], [place], [address], 10/13/2024 12:36:35 10/12/20 24 10/13/2024 COMP. METAB OLIC PANEL (14) bilirubin, total 0.3 mg/dL 0.0-1. 2 Not Available [facility] ([facility]) [address] [place], [address], 10/13/2024 12:36:35 10/12/20 24 10/13/2024 COMP. METAB OLIC PANEL (14) alkaline phosphatase 73 IU/L 44-121 Not Available [facility] ([facility]) [address] [facility], [place], [address], 10/13/2024 12:36:35 10/12/20 24 10/13/2024 COMP. METAB OLIC PANEL (14) AST (SGOT) 13 IU/L 0-40 Not Available [facility] ([facility]) [address] [facility], [place], [address], 10/13/2024 12:36:35 10/12/20 24 10/13/2024 COMP. METAB OLIC PANEL (14) ALT (SGPT) 13 IU/L 0-32 Not Available [facility] ([facility]) [address] [place], [address], 10/13/2024 12:36:35 10/12/20 24 10/13/2024 HEMOG LOBIN A1C hemoglobin A1C 5.6 % 4.8-5. 6 Predi abete s: 5.7 - 6.4 Diabe evonne: >6.4 Glyce william contr ol for adult s with diabe evonne: <7.0 Not Available [facility] ([facility]) [address] [facility], [place], [address], 10/13/2024 12:36:36 10/12/20 24 10/13/2024 HCG,B ETA SUBUN IT, QNT HCG,beta subunit,qnt, serum 2455 mIU/m L Femal e (Non- pregn ant) 0 - 5 (Post menop ausal ) 0 - 8 Femal e (Preg nant) Weeks of Gesta tion 3 6 - 71 4 10 - 750 5 012 - 4362 6 431 - 60765 7 8062 -3171 63 8 11258 -6495 71 9 13903 -1170 10 10 42691 -1471 77 12 06045 -9450 12 14 02688 - 74636 15 56768 - 43012 16 8896 - 73104 17 1592 - 01936 18 4702 - 16362 Bobby ECLIA metho dolog y Not Available [facility] ([facility]) [address] [facility], [place], [address], 10/13/2024 12:36:37 10/12/20 24 10/13/2024 CBC, PLATE LET, NO DIFFE RENTI AL WBC 9.2 x10e3 /uL 3.4-10 .8 Not Available [facility] ([facility]) [address] [facility], [place], [address], 10/13/2024 12:36:38 10/12/20 24 10/13/2024 CBC, PLATE LET, NO DIFFE RENTI AL RBC 4.48 x10e6 /uL 3.77-5 .28 Not Available [facility] ([facility]) [address] [place], [address], 10/13/2024 12:36:38 10/12/20 24 10/13/2024 CBC, PLATE LET, NO DIFFE RENTI AL hemoglobin 13.3 g/dL 11.1-1 5.9 Not Available [facility] ([facility]) [address] [place], [address], 10/13/2024 12:36:38 10/12/20 24 10/13/2024 CBC, PLATE LET, NO DIFFE RENTI AL hematocrit 41.0 % 34.0-4 6.6 Not Available [facility] ([facility]) [address] [facility], [place], [address], 10/13/2024 12:36:38 10/12/20 24 10/13/2024 CBC, PLATE LET, NO DIFFE RENTI AL MCV 92 fL 79-97 Not Available [facility] ([facility]) [address] [facility], [place], [address], 10/13/2024 12:36:38 10/12/20 24 10/13/2024 CBC, PLATE LET, NO DIFFE RENTI AL MCH 29.7 pg 26.6-3 3.0 Not Available [facility] ([facility]) [address] [facility], [place], [address], 10/13/2024 12:36:38 10/12/20 24 10/13/2024 CBC, PLATE LET, NO DIFFE RENTI AL MCHC 32.4 g/dL 31.5-3 5.7 Not Available [facility] ([facility]) [address] [facility], [place], [address], 10/13/2024 12:36:38 10/12/20 24 10/13/2024 CBC, PLATE LET, NO DIFFE RENTI AL RDW 13.0 % 11.7-1 5.4 Not Available [facility] ([facility]) [address] [facility], [place], [address], 10/13/2024 12:36:38 10/12/20 24 10/13/2024 CBC, PLATE LET, NO DIFFE RENTI AL platelets 290 x10e3 /uL 150-45 0 Not Available [facility] ([facility]) [address] [facility], [place], [address], 10/13/2024 12:36:38 10/12/20 24 10/12/2024 pregn jeff test, urine HCG positi ve Not Available In-Office Order Internal Use Only DO Not Attach Compendium DO Not Attach Compendium, Do Not Delete/merge, [id number] 10/12/2024 09:28:39 10/26/19 25 10/27/2024 HCG,B ETA SUBUN IT, QNT HCG,beta subunit,qnt, serum 561 mIU/m L Femal e (Non- pregn ant) 0 - 5 (Post menop ausal ) 0 - 8 Femal e (Preg nant) Weeks of Gesta tion 3 6 - 71 4 10 - 750 5 186 - 6210 6 678 - 83593 7 2679 -7241 63 8 38518 -1754 71 9 83734 -9786 10 10 47579 -9687 77 12 27441 -6206 12 14 42922 - 82353 15 16807 - 00048 16 8725 - 82357 17 8346 - 33532 18 3851 - 35793 Bobby ECLIA metho dolog y Not Available [facility] ([facility]) [address] [facility], [place], [address], 10/27/2024 04:36:01 10/27/19 25 10/27/2024 US, pelvi s, trans abdom inal + trans vagin al No observ ation record ed. [facility] ([facility]) Scheduling [address] [place], [address], 10/28/2024 13:41:19 Result Notes None recorded. Problems Name Problem SNOMED Code Status Onset Date Resolution Date Notes Provider Name and Address Organization Details Recorded Time Past history of gestational diabetes mellitus 907343605 Active 2023 RONI ORTEGA MD Attn: Raquel garcia,[address] [facility], [place], [address] , [facility] 10:06:32 Problem Notes None recorded. Procedures Surgical History Date Name Laterality Status Provider Name and Address Organization Details Recorded Time tonsillectomy completed Cindy Vasques MA [facility] 10/12/2024 09:22:52 extraction of wisdom tooth completed Cindy Vasques MA [facility] 10/12/2024 09:23:00 Imaging Results None recorded. Procedure Notes None recorded. Medical Equipment None Reported. Allergies No known drug allergies Medications Name Sig Start Date Stop Date Status Note LastModified by Organization Details LastModified Time sertraline 25 mg tablet TAKE 1 TABLET BY MOUTH EVERY DAY active Not Available Not Available No t Available Slynd 4 mg (28) tablet TAKE 1 TABLET BY MOUTH ONCE DAILY 10/12 completed Not Available Not Available Not Available Vitals Date Recorded Body height Body mass index (BMI) Body weight Oxygen saturation Oxygen saturation in Arterial blood by Pulse oximetry Heart rate Body temperature Respiratory rate Systolic And Diastolic Provider Name and Address Organization Details Last Updated DateTime 5 165.1 cm 35.8 kg/m2 20166.0 6 g 99 % 99 % 80 /min 98.5 [degF] 16 /min 136/86 mm[Hg] Cindy Vasques MA [facility] 5 12:21:47 Date Recorded Body weight Oxygen saturation Oxygen saturation in Arterial blood by Pulse oximetry Heart rate Body mass index (BMI) Body height Body temperature Respiratory rate Systolic And Diastolic Provider Name and Address Organization Details Last Updated DateTime 4 69666.4 1 g 98 % 98 % 84 /min 35.8 kg/m2 165.1 cm 98.6 [degF] 12 /min 117/88 mm[Hg] Cindy Vasques MA [facility] 4 09:25:58 Social History Question Answer Notes LastModified by Organizat ion Details LastModified Time Tobacco Smoking Status Never Smoker Cindy Vasques MA null, [facility] 10/12/2024 09:20:24 Are You Blind Or Do You Have Difficulty Seeing? No Information not available 10/12/2024 What Is Your Level Of Caffeine Consumption? Moderate Information not available 10/12/2024 In The 14 Days Before Symptom Onset, Have You Had Close Contact With A Laboratory-confir med COVID-19 While That Case Was Ill? No Information not available 10/12/2024 In The 14 Days Before Symptom Onset, Have You Had Close Contact With A Person Who Is Under Investigation For COVID-19 While That Person Was Ill? No Information not available 10/12/2024 Have You Been To An Area Known To Be High Risk For COVID-19? No Information not available 10/12/2024 Are You Deaf Or Do You Have Serious Difficulty Hearing? No Information not available 10/12/2024 What Type Of Diet Are You Following? REGULAR Information not available 10/12/2024 Are There Any Guns Present In Your Home? Yes Locked Up Information not available 10/12/2024 What Was The Date Of Your Most Recent Tobacco Screening? 10/12/2024 Information not available 10/12/2024 How Many Children Do You Have? 1 Information not available 10/12/2024 Do You Use Protection During Sex? No Information not available 10/12/2024 What Is Your Relationship Status? Single Information not available 10/12/2024 Do You Use Your Seat Belt Or Car Seat Routinely? Yes Information not available 10/12/2024 Are You Sexually Active? Yes Information not available 10/12/2024 Do You Have Smoke And Carbon Monoxide Detectors In Your Home? Yes Information not available 10/12/2024 Are You Passively Exposed To Smoke? Yes Information no t available 10/12/2024 Do You Use Sunscreen Routinely? Yes Information not available 10/12/2024 Sex: Female Functional Status Question Answer Note LastModified by Organizat ion Details LastModified Time Do you use any illicit or recreational drugs? No Information not available 10/12/2024 Do you or have you ever used any other forms of tobacco or nicotine? No Information not available 10/12/2024 What is your level of alcohol consumption? Occasional Information not available 10/12/2024 Are you currently employed? Yes Information not available 10/12/2024 Are you able to care for yourself independently? 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 Moderate Information not available 10/12/2024 Mental Status Question Answer Note LastModified by Organization D etails LastModified Time Do you feel stressed (tense, restless, nervous, or anxious, or unable to sleep at night)? [id number] Information not available 10/12/2024 Family History Relationship Description Onset Age of this Age Resolved Age Notes LastModified by Organization Details LastModified Time Paternal Grandmother Diabetes mellitus [email or web address] Not available 2023 09:19:00 Maternal Grandmother Diabetes mellitus eemeryma Not available 2023 09:19:00 Maternal Grandmother Essential hypertension eemeryma Not available 09:19:15 Mother Essential hypertension eemeryma Not available 09:19:15 Sister Essential hypertension eemeryma Not available 09:19:15 Father Low blood pressure eemeryma Not available 2023 09:19:41 Notes:Brother had a specific type of brain tumor Medical History Condition Response Coronary Artery Disease N Other Y High Blood Pressure N Atrial Fibrillation N Thyroid Problems N Kidney or Bladder Problems N GI Problems N Depression N COPD N Blood Clots N Have you had a mammogram in the last yea r? N Skin Problems N Eating Disorder N Anemia N Heart Attack ([place]) N Anxiety Disorder N Diabetes N Muscle, Joint, or Bone Problems N Arthritis N Seizures/Epilepsy N Have you had a colonoscopy in the last 1 0 years? N Acid Reflux (GERD) N Cancer N Stroke N Asthma N Allergies N Have you had a PSA blood test in the las t year? N ADHD N Substance Abuse N High Cholesterol N Hepatitis N Liver Disease N Schizophrenia N Headaches N Heart Failure N Osteoporosis N Gynecological History Statement/Question Response Flow Moderate Date of LMP 07/28/2024 Menses Monthly N Date of Last Pap Smear Duration of Flow (days) 5 Current Control Method None Obstetrics History GPAL:G 3 P 0 0 2 1 Type Value Spontaneous 2 Living 1 Total 3 Immunizations Vaccine Type Date Status Note Provider Nam e and Address Organization Details Recorded Time Hib, unspecified formulation 7 completed RONI ORTEGA MD Attn: Accounting,[address] [facility], [place], [address], [place] [facility] 10/12/2024 09:57:53 IPV 1 completed RONI ORTEGA MD Attn: Accounting,[address] [facility], [place], [address], [place] [facility] 10/12/2024 09:57:53 MMR 7 completed RONI ORTEGA MD Attn: Accounting,[address] [facility], [place], [address], [place] [facility] 10/12/2024 09:57:53 MMR 1 completed RONI ORTEGA MD Attn: Accounting,[address] [facility], [place], [address], [place] [facility] 10/12/2024 09:57:53 RSV, recombinant, protein subunit RSVpreF, adjuvant reconstituted, 0.5 mL, PF 4 completed RONI ORTEGA MD Attn: Accounting,[address] [facility], [place], [address], [place] [facility] 10/12/2024 09:57:53 Tdap 4 completed RONI ORTEGA MD Attn: Accounting,[address] [facility], [place], [address], [place] [facility] 10/12/2024 09:57:53 Tdap 0 completed RONI ORTEGA MD Attn: Accounting,[address] [facility], [place], [address], [place] [facility] 10/12/2024 09:57:53 OPV, trivalent 7 completed RONI ORTEGA MD Attn: Accounting,[address] [facility], [place], [address], [place] [facility] 10/12/2024 09:57:53 OPV, trivalent 6 completed RONI ORTEGA MD Attn: Accounting,[address] [facility], [place], [address], [place] [facility] 10/12/2024 09:57:53 OPV, trivalent 7 completed RONI ORTEGA MD Attn: Accounting,[address] [facility], [place], [place], [address] [place] [address], [place] [facility] 10/12/2024 09:57:53 OPV, trivalent 6 completed RONI ORTEGA MD Attn: Accounting,[address] [facility], [place], [place], [address] [place] [address], [facility] 10/12/2024 09:57:53 DTP-Hib 7 completed RONI ORTEGA MD Attn: Accounting,[address] [facility], [place], [place], [address] [place] [address], [facility] - [facility] 10/12/2024 09:57:53 DTP-Hib 6 completed RONI ORTEGA MD Attn: Accounting,[address] [facility], [place], [place], [address] [place] [address], [facility] 10/12/2024 09:57:53 DTP-Hib 6 completed RONI ORTEGA MD Attn: Accounting,[address] [facility], [place], [place], [address] [place] [address], [place] [facility] 10/12/2024 09:57:53 Novel ahzoashgi-L2H7-22 9 completed RONI ORTEGA MD Attn: Accounting,[address] [facility], [place], [place], [address] [place] [address], [place] [facility] 10/12/2024 09:57:53 HPV, quadrivalent 1 completed RONI ORTEGA MD Attn: Accounting,[address] [facility], [place], [place], [address] [place] [address], [place] [facility] 10/12/2024 09:57:53 HPV, quadrivalent 0 completed RONI ORTEGA MD Attn: Accounting,[address] [facility], [place], [address] [place] [address], [place] [facility] 10/12/2024 09:57:53 HPV, quadrivalent 0 completed RONI ORTEGA MD Attn: Accounting,[address] [place], [place], [address] [place] [address], [place] [facility] 10/12/2024 09:57:53 Hep B, adolescent or pediatric 7 completed RONI ORTEGA MD Attn: Accounting,[address] [facility], [place], [address], [place] [facility] 10/12/2024 09:57:53 Hep B, adolescent or pediatric 6 completed RONI ORTEGA MD Attn: Accounting,[address] [facility], [place], [address], [place] [facility] 10/12/2024 09:57:53 Hep B, adolescent or pediatric 6 completed RONI ORTEGA MD Attn: Accounting,[address] [facility], [place], [address], [place] [facility] 10/12/2024 09:57:53 Hep A, pediatric, unspecified formulation 1 completed RONI ORTEGA MD Attn: Accounting,[address] [facility], [place], [address] [place] [address], [place] [facility] 10/12/2024 09:57:53 Hep A, pediatric, unspecified formulation 0 completed RONI ORTEGA MD Attn: Accounting,[address] [facility], [place], [address] [place] [address], [place] [facility] 10/12/2024 09:57:53 meningococcal C conjugate 0 completed RNOI ORTEGA MD Attn: Accounting,[address] [facility], [place], [address] [place] [address], [place] [facility] 10/12/2024 09:57:53 DTaP 1 completed RONI ORTEGA MD Attn: Accounting,[address] [facility], [place], [address] [place] [address], [place] [facility] 10/12/2024 09:57:53 DTaP 7 completed RONI ORTEGA MD Attn: Accounting,[address] [facility], [place], [address] [place] [address], [place] [facility] 10/12/2024 09:57:53 Influenza, split virus, quadrivalent, PF 2 completed RONI ORTEGA MD Attn: Accounting,[address] [facility], [place], [address], [facility] 10/12/2024 09:57:53 Past Encounters Encounter ID Performer Location Encounter Start Date Encounter Closed Date Diagnosis/Indication Diagnosis SNOMED-CT Code Diagnosis ICD10 Code Diagnosis IMO Codes Diagnosis Note [id number] MD Ari LUQUE ([employer]IOR [employer]) [address] [place] [address] 10/12/2024 08:58:08 10/13/2024 10:25:53 Adult health examination 797187214 Z00.00 - Reviewed risks for cardiovasc ular disease, infection, and cancer; ordered screening tests as appropriat e- Recommende d annual flu vaccine and updated 0230-5671 COVID vaccine Obesity 800805619 E66.81 2 Z68.35 - Recommende d nutritious diet and regular physical activity support 40 3593932 Z39.1 - Continue PNV- Advised frequent milk removal to continue supporting milk production , as well as ensuring adequate fluid and calorie intake Irregular periods 767050 07 N92.6 - Likely secondary to lactationa l amenorrhea - Suspect early loss last night with positive home test, vaginal bleeding with passage of clot with sac, and with resolution of bleeding thereafter . Repeat UPT in office is positive. Past pregn jeff history of gestational diabetes mellitus 401986966 Z86.32 - History of GDMA2 with glipizide use- f/u A1c to evaluate for prediabete s or DM2 test positive 894444963 Z32.01 - Suspect early loss as above. Will obtain serum beta-hCG level and confirm down-trend ing. Contracept ion care management 570624441 Z30.9 - Will prescribe progestin- only control after confirming down-trend ing beta-hCG [id number] MD Ari LUQUE ([employer]) [address] [place] [address] 10/27/2024 12:05:14 11/17/2024 14:30:30 Miscarriage 86473254 O03.9 - Continue monitoring bleeding. Reassured patient that light spotting likely secondary to recent transvagin al ultrasound . Advised seeking care for excessive bleeding. Anxiety 19135830 F41.9 - Will start sertraline 25 mg Health Concerns Section Related Observation LastModified by Organization Detai ls LastModified Time None Recorded Concern Status LastModified by Organization Details LastModified Time None Recorded Advance Directives Directive None Recorded Payers Insurance Date Sequence Insurance Name Policy Number Policy Tsai Covered Member ID Tsai Member ID Guarantor Name 11/21/2024 1 [facility] [id number] Micaela Bone [id number] Micaela Bone 10/12/2024 2 [place] [facility] PRIOR TO 05/14/2025 (MEDICAID REPLACEMENT - HMO) [id number] Micaela Bone [id number] Micaela Bone 03/31/2025 2 [place] [employer] Micaela Bone [id number] Micaela Bone Notes Date Note Type Note Provider Name and Address Organization Details Recorded Time 10/12/2024 text/html ROS as noted in the HPI Annual wellness- Establishing care Concerns today- Has noticed decreasing supply over past 6 weeks. Pumps at work, every 3 hours. Latches baby to breast at night and on weekends. Also feels less full.- Had a miscarriage in the past, about 6 months prior to her full-term delivery.- Thinks she had a miscarriage last night. Had a positive UPT at home (her first positive test), had bleeding and passed a half-dollar sized clot with a clear-looking sac. Has not bled since.- Would like to be back on Slynd. 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 Baby was laying on left side prior to delivery.- Her baby Phyllis has laryngomalacia and was slow to gain weight; follows with [facility]. Partner's older children were well and did not have any congenital issues. Cardiovascular risk- HTN: FHx in mother, sister, and maternal gma. At 39w3d during , had elevated BP 160s/100s but not protein in urine and was induced; denies high BP during labor or after.- DM2: FHx in maternal and paternal gmas. 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 No- Family history of [place], CVA? FHx of [place] in maternal gma; of [place] in 70s. Infection risk- Prior testing for HIV? Neg during - Prior testing for HepC? Neg during - History of STIs? No- Currently having unprotected sex? Yes- Vaccines due? COVID Plans for - Desires within next year? Not yet- On folic acid? Yes- Using contraception? Would like to restart [facility] Cancer screenings- Breast cancer: Not yet due. No known FHx.- Cervical cancer: Reports normal Pap in 2022.- Colon cancer: No known FHx.- Lung cancer: Never smoker. RONI ORTEGA MD Attn: [address]ing[address] [place], [address], [facility] 10/12/2024 10:52:21 10/27/2024 text/html ROS as noted in the HPI Miscarriage- On 10/13 - bleeding was light pink- Heavy bleeding on 10/14; changing pad every 3-4 hours because of heaviness of bleeding- Called about bleeding on 10/15- Had heavy bleeding from 10/14 to 10/23, then bleeding started slowing down on 10/24. no bleeding on 10/25 and in the morning on 10/26.- Had ultrasound on 10/26 and had light pink spotting afterward- Has been more tearful and anxious RONI ORTEGA MD Attn: [address] [place], [address], [facility] 11/15/2024 22:19:29 OBGyn Episode Ob Episode Information Episode Created Date Number of Fetuses Patient Bloodtype Patient rh Status Prepregnancy Weight lbs Domestic Partner Domestic Partner Phone Father Name Cloud Operations Engineer Status 10/12/20 24 1 CLOSED Fetus Data First Name Last Name Admitted to NICU Weight (g) Sex Living Outcome Pediatric Complications Fetus ID Race Codes Race Delivery Type , Spontane ous [id number] Marin Calculation Initial Marin Date Initial Exam Date Initial Exam Provider Initial Ultrasound Date Last Menstrual Period Date Ultra Sound Weeks Gestation 0 Eighteen To Twenty Week Marin Update Ultra Sound Date Fundal Height At Umbil Quickening Date Ultra Sound Latest Weeks Gestation Final Marin Confirmed By Final Marin Confirmed Date Final Marin Date Ultra Sound Latest Days Gestation 0 0 Menstrual History Last Menstrual Date Menses Monthly On Bcp Conception Prior Menses Frequency Hcg Plus Date Menarche Onset Age Delivery Information Delivery Date Delivery Type Labor Anesthesia Weeks Gestation Incision Type Labor Labor Length Hrs Delivered By Post Complications Tubal Sterilization Discharge Date Comments 4 Discharge Information Feeding Method Contraceptive Method Maternal HG B and HCT Levels
--- OUTSIDE RECORDS SUMMARY | 2025-08-09 11:57 | XMS_ITS | Clinical Summary ---
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
[2025-08-13 19:09] LABS: Total Bile Acids 1.0 umol/L (.)
== END 2025-08-09 10:26 | disposition home or self-care (01) ==
PROVIDERS: Visit Provider Obstetrics & Gynecology
DX: K71.0 Toxic liver disease with cholestasis (principal)
CPT/HCPCS: 82542

== ENCOUNTER 2025-08-26 11:33 | Observation (INO) | payer OTHER, MEDICAID, SELFPAY ==
[2025-08-26 11:54] VITALS: BP 135/92; PULSE 92
[2025-08-26 12:00] VITALS: BP 113/73; PULSE 85
[2025-08-26 12:15] VITALS: BP 110/68; PULSE 85
[2025-08-26 12:30] VITALS: BP 121/77; PULSE 83
[2025-08-26 12:31] LABS: Add Urine Microscopic? YES; Appearance Urine Clear (Clear); Glucose Urine UA Negative (Negative); Leukocyte Esterase Ur 2+ LEU/UL (Negative); Need Manual Microscopic Reviewed; Nitrate Urine Negative (Negative); Non Pathogenic Casts 0-2; Specific Grav Ur 1.021 (1.001-1.035)
[2025-08-26 12:38] VITALS: BMI 40.3
--- OUTSIDE RECORDS SUMMARY | 2025-08-26 12:41 | XMS_ITS | Clinical Summary ---
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
--- NOTE | 2025-08-27 12:49 | P.PNOB_ITS ---
OB - Triage/Final Diagnosis Visit Information Date of evaluation: 08/26/25 Reason for evaluation: threatened labor Comments/Additional reasons for admission: I have assessed the risk for this patient, Micaela Bryant, and determined that she would benefit from observation care. Evaluation Laboratory results: Laboratory Tests 08/26/25 12:11 Urine Color Yellow Urine Appearance Clear Urine pH 7.5 Ur Specific [place] 1.021 Urine Protein Trace Urine Glucose (UA) Negative Urine Ketones Negative Ur Blood (Man) 2+ H Urine Nitrate Negative Urine Bilirubin Negative Urine Urobilinogen 1.0 Add Ur Microanalysis Reviewed Leukocyte Esterase Rfl 2+ H Urine RBC 21-50 H Urine WBC 0-5 Ur Squamous Epith Cells Moderate Urine Bacteria 2+ H Urine Casts 0-2
== END 2025-08-26 13:20 | disposition home or self-care (01) ==
PROVIDERS: Admitting Provider Obstetrics & Gynecology; Visit Provider Obstetrics & Gynecology
DX: O47.03 False labor before 37 completed weeks of gestation, third trimester (principal); Z3A.28 28 weeks gestation of pregnancy
CPT/HCPCS: 81001; G0378; G0379

== ENCOUNTER 2025-10-05 07:49 | Outpatient (CLI) | payer OTHER, MEDICAID, SELFPAY ==
--- OUTSIDE RECORDS SUMMARY | 2025-10-05 08:01 | XMS_ITS | Clinical Summary ---
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
[2025-10-05 08:26] VITALS: BP 113/69; PULSE 88
[2025-10-05 08:57] LABS: OBXCEM ROM Plus Negative (Negative)
[2025-10-05 09:02] VITALS: BP 113/69; PULSE 88
== END 2025-10-05 09:02 | disposition home or self-care (01) ==
LOC: ANHOBOP 07:56 → ANHOBPP 07:57
PROVIDERS: Obstetrics & Gynecology Gynecology; Visit Provider Obstetrics & Gynecology
DX: O42.90 Premature rupture of membranes, unspecified as to length of time between rupture and onset of labor, unspecified weeks of gestation (principal); Z3A.00 Weeks of gestation of pregnancy not specified
CPT/HCPCS: 59025; 84112; 99199